=== PATIENT | female | born 1960 | race Caucasian/White ===

== ENCOUNTER 2017-10-14 17:13 | Emergency (ER) | payer BC ==
[2017-10-14 17:59] VITALS: BP 134/80
--- NOTE | 2017-10-14 18:12 | UC ---
Skin Complaint HPI - HPI Summary HPI Summary: rash on left flank that erupted after having pain in the same area 3 days ago - History of Current Complaint Chief Complaint: UCRash Time Seen by Provider: 10/14/17 18:01 Stated Complaint: RASH Hx Obtained From: Patient Hx Last Menstrual Period: none since 2012 ?: No Onset/Duration: Sudden Onset, Lasting Days - 3, Still Present Timing: Constant Pain Intensity: 3 Pain Scale Used: 0-10 Numeric Location: Discrete Character: Pain, Redness Aggravating Factor(s): Touch - clothes rubbing Alleviating Factor(s): Nothing Associated Signs & Symptoms: Positive: Negative - Allergy/Home Medications Allergies/Adverse Reactions: Allergies Allergy/AdvReac Type Severity Reaction Status Date / Time MS Penicillin V Allergy Unknown See Comment Verified 10/14/17 17:33 [From Penicillin VK Potassium] Home Medications: Home Medications ARIPiprazole TAB* [Abilify TAB*] 7.5 mg PO DAILY 10/14/17 [History Confirmed ] Review of Systems Constitutional: Negative Skin: Rash - left flank radiating around under left breast Eyes: Negative ENT: Negative Respiratory: Negative Cardiovascular: Negative Gastrointestinal: Negative Genitourinary: Negative Motor: Negative Neurovascular: Negative Musculoskeletal: Negative Neurological: Negative Psychological: Negative Is Patient Immunocompromised?: No All Other Systems Reviewed And Are Negative: Yes PMH/Surg Hx/FS Hx/Imm Hx Previously Healthy: Yes Psychological History: Bipolar Disorder - Surgical History Surgical History: Yes Surgery Procedure, Year, and Place: foot x2 (right and left), R clavicle x2, D&C - Family History Known Family History: Positive: Diabetes Negative: Hypertension - Social History Occupation: Employed Part-time Lives: With Family Alcohol Use: Rare Substance Use Type: None Smoking Status (MU): Never Smoked Tobacco Physical Exam Triage Information Reviewed: Yes Appearance: Well-Appearing, No Pain Distress, Obese Vital Signs: Initial Vital Signs Temp 98.2 F 10/14/17 17:56 Pulse 79 10/14/17 17:56 Resp 18 10/14/17 17:56 BP 134/80 10/14/17 17:56 Pulse Ox 99 10/14/17 17:56 Vital Signs Reviewed: Yes Eye Exam: Normal Eyes: Positive: Conjunctiva Clear ENT Exam: Normal ENT: Positive: Normal ENT inspection, Hearing grossly normal. Negative: Trismus , Muffled voice, Hoarse voice Dental Exam: Normal Neck exam: Normal Neck: Positive: Supple, Nontender Respiratory Exam: Normal Respiratory: Positive: Chest non-tender, No respiratory distress, No accessory muscle use Cardiovascular Exam: Normal Cardiovascular: Positive: RRR, Pulses Normal, Brisk Capillary Refill Musculoskeletal Exam: Normal Musculoskeletal: Positive: Strength Intact, ROM Intact, No Edema Neurological Exam: Normal Neurological: Positive: Alert, Muscle Tone Normal Psychological Exam: Normal Skin Exam: Other Skin: Positive: Other - red vesicular rah arond left flank and under left breast Course/Dx - Course Course Of Treatment: mild soap and water wash, acyclovir, lidoderm, tylenol/ ibuprofen for pain follow with pcp prn - Diagnoses Provider Diagnoses: shingles left flank Discharge - Sign-Out/Discharge Documenting (check all that apply): Patient Departure All imaging exams completed and their final reports reviewed: No Studies - Discharge Plan Condition: Stable Disposition: HOME Prescriptions: Acyclovir* [Zovirax 400 MG TAB*] 800 mg PO 5ID 7 Days #70 tab Lidocaine PATCH 5%* [Lidoderm 5% Patch*] 1 patch TRANSDERM DAILY 15 Days #15 patch Patient Education Materials: Ibuprofen (By mouth), Shingles (ED) Referrals: Saida Cabello MD [Primary Care Provider] - If Needed - Billing Disposition and Condition Condition: STABLE Disposition: Home
== END 2017-10-14 18:36 | disposition home or self-care (01) ==
LOC: UCEAST 17:13
DX: B02.9 Zoster without complications (principal); Z88.0 Allergy status to penicillin; C45.9 Mesothelioma, unspecified
CPT/HCPCS: 99212; G0463

== ENCOUNTER 2018-01-15 09:26 | Emergency (ER) | payer BC ==
[2018-01-15 09:33] VITALS: BP 113/77
[2018-01-15] MEDS ORDERED: Lidocaine 1%* 5 ML VIAL INJ ONE (10:17)
--- NOTE | 2018-01-15 10:57 | UC ---
Laceration HPI - HPI Summary HPI Summary: 57-year-old female presents with laceration to the left upper lip and abrasions below her left eye after accidentally tripping on bed skirt and falling the floor this morning around 9 AM. Denies loss of consciousness, malocclusion, loose teeth, headache, visual disturbances, dysphagia, difficulty breathing, chest pain, palpitations, weakness, or dizziness. - History Of Current Complaint Chief Complaint: UCLaceration Stated Complaint: FACIAL LAC Time Seen by Provider: 01/15/18 10:00 Hx Obtained From: Patient Hx Last Menstrual Period: none since 2012 Laceration Location: Face - left upper lip Severity: Mild Pain Intensity: 3 Aggravating Factors: Nothing Head: 1 - Superficial abrasion with mild eccymosis and swelling. 2 - 1 cm laceration through and through that extends through the vermilion border - Allergies/Home Medications Allergies/Adverse Reactions: Allergies Allergy/AdvReac Type Severity Reaction Status Date / Time Penicillins Allergy See Comment Verified 01/15/18 09:33 Home Medications: Home Medications Fluoxetine HCl [Prozac] 10 mg PO 01/15/18 [History] PMH/Surg Hx/FS Hx/Imm Hx Previously Healthy: Yes Psychological History: Depression - Surgical History Surgical History: Yes Surgery Procedure, Year, and Place: foot x2 (right and left), R clavicle x2, D&C - Family History Known Family History: Positive: Diabetes Negative: Cardiac Disease, Hypertension, Respiratory Disease - Social History Occupation: Employed Full-time Lives: With Family Alcohol Use: None Substance Use Type: None Smoking Status (MU): Never Smoked Tobacco Review of Systems All Other Systems Reviewed And Are Negative: Yes Constitutional: Negative: Fever, Chills Skin: Positive: Other - See HPI Eyes: Negative: Blurred Vision, Diplopia, Photophobia ENT: Negative: Epistaxis, Dental Pain Respiratory: Negative: Shortness Of Breath Cardiovascular: Negative: Palpitations, Chest Pain Gastrointestinal: Negative: Abdominal Pain, Vomiting, Diarrhea, Nausea Musculoskeletal: Positive: Negative Neurological: Negative: Headache, Paresthesia, Numbness Is Patient Immunocompromised?: No Physical Exam Triage Information Reviewed: Yes Appearance: Well-Appearing, No Pain Distress, Obese Vital Signs: Initial Vital Signs Temp 96.2 F 01/15/18 09:29 Pulse 73 01/15/18 09:29 Resp 18 01/15/18 09:29 BP 113/77 01/15/18 09:29 Pulse Ox 98 01/15/18 09:29 Vital Signs Reviewed: Yes Eyes: Positive: Conjunctiva Clear, Other: - Extraoccular eye movements intact. ENT: Positive: Pharynx normal, Uvula midline, Other - No malocculsion, loose teeth, or dental fracture noted.. Negative: Nasal congestion, Nasal drainage, Trismus, Dental tenderness Neck: Positive: Supple, Nontender, Other: - Full painless cervical ROM Respiratory: Positive: Lungs clear, Normal breath sounds, No respiratory distress Cardiovascular: Positive: RRR, No Murmur Abdomen Description: Positive: Nontender, No Organomegaly, Soft. Negative: Distended, Guarding Musculoskeletal: Positive: Other: - Mild tenderness over left maxilla without crepitus or gross deformity. Neurological: Positive: Alert - AAOx4. MAK equal and strong. Gait steady., Muscle Tone Normal Skin: Positive: Significant Lesion(s) - See diagrams. There is also a 2 cm laceration to the inner lip immediately below external laceration. Laceration Repair - Laceration Repair 1 Procedure Summary: Procedure: Laceration Repair of Left Upper Lip PROCEDURE: Informed consent was obtained before procedure started and the appropriate timeout was taken. The wound was irrigated with 400 ml sterile saline prior to procedure by the RN The area was prepped and cleansed using a sterile saline and chlorhexadine solution. A left infraorbital nerve block was performed using 2 ml of Lidocaine 1% without epinephrine and good anesthesia was achieved. The external laceration was attended to first. The vermilion border was brought into good alignment and a interrupted suture using 6-0 Ethilon was placed before placing 2 more interrupted sutures with the 6-0 Ethilon to close the laceration. The internal laceration was then attended. A single buried suture using 6-0 Vicryl was placed to bring the deep layers into approximation then 3 interrupted sutures using 6-0 Vicryl were placed in the mucosa of the inner lip. Estimated blood loss was minimal. Anticipatory guidance as well as standard post -procedure care were explained to the patient. Return precautions were given. The patient tolerated the procedure well without complications. The patient is to return in 7 days for suture removal and evaluation of the laceration. Description: Linear - Through and through left upper lip laceration Laceration Size After Repair: Length (cm) - 1 cm external lip, 2 cm internal lip Modified For Repair: No Type Injection: Local - Infraorbital nerve block Anesthesia Used: 1.0% Lido Cleansing Completed Via Routine Prep: Yes Irrigation With Pressure Irrigation Device: Yes Closure Material: Sutures Closure Method: Multilayer Suture Of: Skin, Mucus Membrane Suture Type: Nylon - 6-0 Ethilon, Vicryl - 6-0 Vicryl Laceration Course/Dx - Course/Dx Course Of Treatment: 57-year-old female presents with laceration to the left upper lip and abrasions below her left eye after accidentally tripping on bed skirt and falling the floor this morning around 9 AM. Denies loss of consciousness, malocclusion, loose teeth, headache, visual disturbances, dysphagia, difficulty breathing, chest pain, palpitations, weakness, or dizziness. Exam revealed a through and through laceration of the left upper lip with a 2 cm laceration in the mucosa of the lip and a 1 cm laceartion externally that extended through the vermilion border. An infraorbital nerve block was performed and both the external and internal laceration were repaired. Anticipatory guidance and warning symptoms were reviewed with the patient. She is to return in 7 days for suture removal. Verbalizes understanding and agrees with POC. - Differential Dx - Laceration/Wound Differental Diagnoses: Bite Injury, Laceration Provider Diagnoses: laceration left upper lip Discharge - Sign-Out/Discharge Documenting (check all that apply): Patient Departure All imaging exams completed and their final reports reviewed: No Studies - Discharge Plan Condition: Stable Disposition: HOME Patient Education Materials: Care For Your Stitches (ED), Care For Your Absorbable Stitches (ED), Facial Laceration (ED) Referrals: Saida Cabello MD [Primary Care Provider] - Additional Instructions: Your lip laceration was repaired using both absorbable and non-absorbable sutures. You will need to return here to have the non-absorbable sutures removed however the absorbable will slowly disappear over the next several weeks. Gently clean the outside of the lip with a mild soap and water daily. You may perform oral hygiene as normal. I would recommend using a salt water rinse after every time you eat and at bedtime to remove any debris that nay get into the wound. The numbing medication used to repair your laceration will begin to wear off in about 2-4 hours. You may use acetaminophen (Tylenol) or ibuprofen (Advil, Motrin ) according to directions as needed for pain. Return here in 7 days for suture removal. Watch for signs of infection including fever greater than 100.5 F, redness that spreads, swelling of the hand, pain that is not managed with pain medication, numbness or tingling in the hand or fingers, or pus draining from the wound. Seek immediate medical attention should any of these occur. - Billing Disposition and Condition Condition: STABLE Disposition: Home
== END 2018-01-15 11:10 | disposition home or self-care (01) ==
LOC: UCEAST 09:26
DX: S01.511A Laceration without foreign body of lip, initial encounter (principal); W01.0XXA Fall on same level from slipping, tripping and stumbling without subsequent striking against object, initial encounter; Y93.01 Activity, walking, marching and hiking; Y92.003 Bedroom of unspecified non-institutional (private) residence as the place of occurrence of the external cause; F32.9 Major depressive disorder, single episode, unspecified; Z88.0 Allergy status to penicillin
CPT/HCPCS: 12001; 12011; 99211; G0463

== ENCOUNTER 2018-01-22 07:01 | Emergency (ER) | payer BC ==
[2018-01-22 07:11] VITALS: BP 113/72
--- NOTE | 2018-01-22 07:29 | UC ---
HPI Wound/Suture Re-check - HPI Summary HPI Summary: Patient presents for suture removal from her left upper lip. Sutures were placed on 01/15/18. Patient sustained a laceration when she rolled out of bed striking her face. No broken teeth. Patient had 3 simple interrupted sutures of the left upper outer lip including 1 to approximate vermilliion border. Patient also had absorbable sutures placed in her left inner lip. Patient without any complaints. Patient states she got mild discomfort which he touches it. No fevers or chills. Patient's been doing salt water rinses inside her mouth. No analgesia taken since the first day. Patient's tetanus is up-to-date. Patient without any questions or concerns. Patient's medications reviewed this visit - History Of Current Complaint Chief Complaint: UCLaceration Stated Complaint: SUTURE REMOVAL Time Seen by Provider: 01/22/18 07:14 Hx Last Menstrual Period: none since 2012 Pain Intensity: 0 - Allergies/Home Medications Allergies/Adverse Reactions: Allergies Allergy/AdvReac Type Severity Reaction Status Date / Time Penicillins Allergy See Comment Verified 01/22/18 07:11 PMH/Surg Hx/FS Hx/Imm Hx Previously Healthy: Yes - Surgical History Surgical History: Yes Surgery Procedure, Year, and Place: foot x2 (right and left), R clavicle x2, D&C - Family History Known Family History: Positive: Diabetes Negative: Cardiac Disease, Hypertension, Respiratory Disease - Social History Occupation: Employed Full-time Lives: With Family Alcohol Use: None Substance Use Type: None Smoking Status (MU): Never Smoked Tobacco Review of Systems All Other Systems Reviewed And Are Negative: Yes Skin: Positive: Bruising - left lateral eye contusion, Other - lip laceration - sutures Physical Exam - Summary Physical Exam Summary: Vital Signs Reviewed: Yes A+Ox3, no distress Eyes: Conjunctiva Clear, BHARATHI EOM intact and full ENT: Hearing grossly normal TM x 2 clear Pt wtih simple interrupted sutures left upper lateral lip - removed without difficulty wound well approximated and healed mild edema. no erythema. fluctuane or discharge Inner lip with visible sutures - absorable -well approximated neck: supple Respiratory: Positive: No respiratory distress, No accessory muscle use Cardiovascular: skin color reflect adequate perfusion Musculoskeletal Exam: MAK x 4 without difficulty Neurological: Positive: Alert, ambulatory without difficulty Psychological: Positive: Normal Response To Family Skin: Positive: no rash, no ecchymosis Triage Information Reviewed: Yes Vital Signs: Initial Vital Signs Temp 95.5 F 01/22/18 07:07 Pulse 62 01/22/18 07:07 Resp 16 01/22/18 07:07 BP 113/72 01/22/18 07:07 Pulse Ox 97 01/22/18 07:07 Course/Dx - Course Course Of Treatment: Patient presents to urgent care to have her external lip sutures removed. There are placed 1123. Wound is well-healed with good approximation. Removed some 3 sutures without any difficulty or bleeding. Reviewed with patient signs and symptoms of infection. Precautions for wound healing including keeping out of the sun. Inner suture line with a peripheral sutures also looks well. No concern for infection there. Patient advised he should follow out in 10-12 days. Patient encouraged to continue salt water rinses but not necessary. Patient comfortable in agreement with plan. Questions answered to the best of my ability. - Diagnosis Provider Diagnosis: Visit for suture removal Discharge - Sign-Out/Discharge Documenting (check all that apply): Patient Departure All imaging exams completed and their final reports reviewed: No Studies - Discharge Plan Condition: Stable Disposition: HOME Patient Education Materials: Stitches Removal (ED) Referrals: Saida Cabello MD [Primary Care Provider] - Additional Instructions: - keep area clean - okay to cover with a thin layer of vasoline, antibiotic ointment, or lotion - continue to monitor for signs of infection - reddness, red streaking, swelling , increased pain - the inner sutures will dissolve in 10-14 days - scar can take up to 9 months to reach their final appearance. Keeping out of sunlight (apply sun screen or wear a hat) will help minimize scar formation - contact your doctor or return with questions or concerns - Billing Disposition and Condition Condition: STABLE Disposition: Home
== END 2018-01-22 07:30 | disposition home or self-care (01) ==
LOC: UCEAST 07:01
DX: S01.511D Laceration without foreign body of lip, subsequent encounter (principal); W22.8XXD Striking against or struck by other objects, subsequent encounter; Z88.0 Allergy status to penicillin

== ENCOUNTER 2018-02-20 16:17 | Emergency (ER) | payer BC ==
[2018-02-20 16:36] VITALS: BP 112/78
--- NOTE | 2018-02-20 16:42 | UC ---
Skin Complaint HPI - HPI Summary HPI Summary: 57-year-old woman comes in to clinic today with a chief complaint of swelling of her left upper lip. Patient had a laceration that was sutured on December. She had sutures taken out. Swelling started about 10 days ago. No drainage. She feels well otherwise. - History of Current Complaint Time Seen by Provider: 02/20/18 16:26 Stated Complaint: SKIN COMPLAINT Hx Last Menstrual Period: none since 2012 - Allergy/Home Medications Allergies/Adverse Reactions: Allergies Allergy/AdvReac Type Severity Reaction Status Date / Time Penicillins Allergy See Comment Verified 01/22/18 07:11 PMH/Surg Hx/FS Hx/Imm Hx Previously Healthy: Yes Psychological History: Depression, Bipolar Disorder - Surgical History Surgical History: Yes Surgery Procedure, Year, and Place: foot x2 (right and left), R clavicle x2, D&C - Family History Known Family History: Positive: Diabetes Negative: Cardiac Disease, Hypertension, Respiratory Disease - Social History Alcohol Use: None Substance Use Type: None Smoking Status (MU): Never Smoked Tobacco Review of Systems All Other Systems Reviewed And Are Negative: Yes Constitutional: Positive: Negative Skin: Positive: Negative Eyes: Positive: Negative ENT: Positive: Other - SEE HPI Respiratory: Positive: Negative Cardiovascular: Positive: Negative Gastrointestinal: Positive: Negative Motor: Positive: Negative Neurovascular: Positive: Negative Musculoskeletal: Positive: Negative Neurological: Positive: Negative Psychological: Positive: Negative Is Patient Immunocompromised?: No Physical Exam Triage Information Reviewed: Yes Appearance: Well-Appearing, No Pain Distress, Well-Nourished Vital Signs: Initial Vital Signs Temp 97.5 F 02/20/18 16:21 Pulse 80 02/20/18 16:21 Resp 16 02/20/18 16:21 BP 112/78 02/20/18 16:21 Pulse Ox 96 02/20/18 16:21 Vital Signs Reviewed: Yes Eye Exam: Normal Eyes: Positive: Conjunctiva Clear ENT: Positive: Other - Upper left the left upper lip has a slightly fluctuant but overall fIRM swelling without any drainage swelling. Dental Exam: Normal Neck exam: Normal Respiratory: Positive: No respiratory distress Musculoskeletal Exam: Normal Musculoskeletal: Positive: Strength Intact, ROM Intact Neurological Exam: Normal Neurological: Positive: Alert, Muscle Tone Normal Psychological Exam: Normal Psychological: Positive: Age Appropriate Behavior Skin Exam: Normal Course/Dx - Course Course Of Treatment: Swelling on the lip is firm. At this time I cannot tell if it's scar tissue to his underlying infection is an underlying foreign body. We will treat with antibiotics and if it does not completely improve the patient 's going to follow-up with plastic surgery. - Diagnoses Provider Diagnosis: Mass of lip Discharge - Sign-Out/Discharge Documenting (check all that apply): Patient Departure All imaging exams completed and their final reports reviewed: No Studies - Discharge Plan Condition: Stable Disposition: HOME Prescriptions: Clindamycin Cap(NF) [Clindamycin Cap 300 mg Cap(NF)] 300 mg PO Q6H #40 cap Patient Education Materials: Abscess (ED) Referrals: Saida Cabello MD [Primary Care Provider] - Sandeep Dickerson MD [Medical Doctor] - Additional Instructions: FOLLOW UP WITH PLASTIC SURGERY IF NOT COMPLETELY IMPROVED. GET RECHECKED FOR ANY WORSENING OF YOUR CONDITION OR QUESTIONS OR CONCERNS. - Billing Disposition and Condition Condition: STABLE Disposition: Home
== END 2018-02-20 16:50 | disposition home or self-care (01) ==
LOC: UCEAST 16:17
DX: K13.0 Diseases of lips (principal); Z88.0 Allergy status to penicillin
CPT/HCPCS: 99212; G0463

== ENCOUNTER 2018-11-10 17:15 | Emergency (ER) | payer BC ==
--- OUTSIDE RECORDS SUMMARY | 2018-11-10 17:22 | XMS REPORT | Continuity of Care Document ---
:1960 External Reference #:[id number] Author Name Saida Cabello M.D. Address [address] [place] [address] Care Team Providers Name Role Phone Tim Oshea - Orthopaedic Surgery Care Team Information Vamp Maker [phone] Saida Cabello - Family Medicine Care Team Information Vamp Maker Roger Taylor MD - Orthopaedic Surgery Care Team Information Vamp [facility] - Care Team Information Vamp Maker [phone] Gastroenterology [facility] - Diagnostic Care Team Information Vamp Maker Radiology Problems Active Problems Provider Date Gallstone Saida Cabello M.D. Onset: 10/27/2018 Chronic kidney disease stage 3 Saida Cabello M.D. Onset: 10/27/2018 Overweight Saida Cabello M.D. Onset: 12/21/2012 Urinary incontinence Saida Cabello M.D. Onset: 12/21/2012 Morbid obesity Zoey Fox M.D. 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 Onset: 07/31/2011 Pain in limb Zoey Fox M.D. Onset: 07/31/2011 Pre-surgery evaluation Zoey Fox M.D. Onset: 07/31/2011 Social History Type Date Description Comments Sex Unknown Tobacco Use Start: Unknown Never Smoked Cigarettes Smoking Status Reviewed: 07/02/18 Never Smoked Cigarettes ETOH Use Rare Tobacco Use Start: Unknown Patient has never smoked Allergies, Adverse Reactions, Alerts Active Allergies Reaction Severity Comments Date Penicillin 06/05/2004 [place] tremor. 02/14/2016 Medications Active Medications SIG Qnty Indications Ordering Provider Date Nystatin apply cream twice 45gm B35.4 Saida Cabello, 08/12/2018 [id number]/GM daily to rash M.D. Cream Tegretol bid Unknown 400mg Tablets Quetiapine Fumarate 1 by mouth every Unknown 200mg at bedtime Tablets Fluvoxamine Maleate 2 once daily Unknown 10mg Tablets Abilify 1 by mouth every Unknown 20mg Tablets day Medications Administered in Office Medication SIG Qnty Indications Ordering Provider Date TB Intradermal Test Saida Cabello M.D. 02/12/2016 Injection TB Intradermal Test Adilson Montero 09/06/2012 Injection TB Intradermal Test Adilson Montero 04/17/2010 Injection Immunizations CPT Code Status Date Vaccine Lot # [id number] Given 10/10/2018 Zoster (Shingles) Vaccine (HZV), Recombinant, Subunit, Adjuvanted 15062 Given 12/14/2017 Influenza Vac, Quadriv[place], [place] [id number] Given 02/11/2017 Influenza vac quadrivalent preservative free 3yrs [id number] [place] [address] Given 02/14/2016 Influenza Vac, Quadrivalent, Slit Virus, Im [id number] 41842 Given 03/24/2014 DO Not Use Split Influenza Virus Vaccine 93144 Given 12/21/2012 DO Not Use Split Influenza Virus Vaccine [id number] 31811 Given 08/10/2012 Tdap Tetanus, W Pertussis [id number] 06673 Given 03/15/2012 DO Not Use Split Influenza Virus Vaccine 36643 Given 02/08/2011 DO Not Use Split Influenza Virus Vaccine 02371 Given 12/29/2009 DO Not Use Split Influenza Virus Vaccine Vital Signs Date Vital Result Comment 10/27/2018 8:06am BP Systolic 134 mmHg BP Diastolic 84 mmHg Heart Rate 66 /min Body Temperature 97.2 F Respiratory Rate 16 /min Height 68 inches 5'8" Weight 227.00 lb BMI (Body Mass Index) 34.5 kg/m2 08/12/2018 8:33am BP Systolic 140 mmHg BP Diastolic 110 mmHg Heart Rate 72 /min Body Temperature 98.5 F Respiratory Rate 18 /min Weight 224.00 lb Results Test Date Facility Test Result H/L Range Note Comprehensive Metabolic 09/27/2018 [facility]) Sodium 141 mEq/L 134-149 Prof Potassium 5.2 mEq/L 3.6-5.5 Chloride 105 mEq/L 94-112 Carbon Dioxide 29 mEq/L 21-32 Glucose 99 mg/dL 70-105 BUN 23 mg/dL 6-26 Creatinine 1.3 mg/dL 0.6-1.4 BUN/Creat Ratio 17.7 CALC 8.0-36.0 Calcium 10.1 mg/dL 8.6-10.2 Total Protein 7.5 g/dL 6.4-8.3 Albumin 4.3 g/dL 3.8-5.5 Globulin 3.2 g/dL 2.0-4.8 A/G Ratio 1.3 CALC 0.6-2.3 Alk. Phosphatase 135 U/L High 30-110 1 Alt (SGPT) 43 U/L High 7-35 2 Ast (Sgot) 25 U/L 5-34 Total Bilirubin 0.4 mg/dL 0.2-1.3 GFR Non- 44 ml/min/1.73m^ Low >=60 GFR 54 ml/min/1.73m^ Low >=60 Liver-Kidney 08/12/2018 [facility] Liver-Kidney <20.1 0.0-20.0 3, 4 Microsomal AB [address] [facility] [place] [address] (199)- - Iron And Tibc 08/12/2018 [facility] Iron 330 [phone] [facility] Bind.Cap.(Tibc) g/[place] [address] (068)- - Uibc 249 g/dL 131-425 Iron 81 g/dL 27-159 Iron Saturation 25 % 15-55 Hepatitis Panel, 08/12/2018 [facility] Hep A Ab, Negative Negative Acute [address] [facility] [place] [address] ([phone] - HBsAg Screen Negative Negative Hep B Core Ab, IgM Negative Negative Hep C Virus Ab 0.2 s/coratio 0.0-0.9 5 Antinuclear 08/12/2018 [facility] Antinuclear Positive Abnormal 6 Antibodies (Lucrecia), [address] [facility] Antibodies, [place] [address] (607)- - Homogeneous Pattern TNP Nucleolar Pattern TNP Speckled Pattern 1:80 Centromere Pattern TNP Spindle Apparatus Pattern TNP Nuclear Membrane Pattern TNP Midbody Pattern TNP Nuclear Dot Pattern TNP Pcna Pattern TNP Centriole Pattern TNP Note: See Comment: 7 Comprehensive Metabolic 08/12/2018 [facility]) Sodium 142 mEq/L 134-149 Prof Potassium 3.9 mEq/L 3.6-5.5 Chloride 104 mEq/L 94-112 Carbon Dioxide 23 mEq/L 21-32 Glucose 115 mg/dL High 70-105 8 BUN 23 mg/dL 6-26 Creatinine 1.2 mg/dL 0.6-1.4 BUN/Creat Ratio 19.2 CALC 8.0-36.0 Calcium 9.5 mg/dL 8.6-10.2 Total Protein 7.2 g/dL 6.4-8.3 Albumin 4.5 g/dL 3.8-5.5 Globulin 2.7 g/dL 2.0-4.8 A/G Ratio 1.7 CALC 0.6-2.3 Alk. Phosphatase 126 U/L High 30-110 9 Alt (SGPT) 40 U/L High 7-35 10 Ast (Sgot) 23 U/L 5-34 Total Bilirubin 0.5 mg/dL 0.2-1.3 GFR Non- 49 ml/min/1.73m^ Low >=60 GFR 59 ml/min/1.73m^ Low >=60 Laboratory test 08/12/2018 [facility] Hemoglobin A1c 5.2 % % 4.1- 5.7 finding (607)- - (Fma) Laboratory test 07/02/2018 [facility] Folate (Folic >20.0 >3.0 11, 12 finding [address] [facility] Acid), Serum ng/[place] [address] (607)- - Laboratory test 07/02/2018 [facility](fma) Vitamin B-12 979 pg/mL 230-1050 finding Ferritin 108 ng/mL 15-200 TSH 0.51 mIU/L 0.50-6.00 Free T3 3.09 pg/mL 2.00-4.90 Vitamin D25 38 30-100 CBC Electronic Fma 07/02/2018 [facility](formerly [facility]) WBC 7.9 x10^3/UL 4.0- 10.0 RBC 4.36 x10^6/UL 3.93-6.00 HGB 13.5 g/dL 12.0-17.0 HCT 40 % 35-50 MCV 92.7 fL 80.0-95.0 MCH 31.0 pg 25.6-32.2 MCHC 33.4 g/dL 32.2-36.0 RDW-CV 12.5 % 11.6-14.4 PLT 203 x10^3/UL 163-400 MPV 10.8 fL 9.4-12.4 Edward# 5.48 x10^3/UL 1.56-6.13 Lymph# 1.53 x10^3/UL 1.18-3.74 [place]# 0.70 x10^3/UL 0.24-0.82 Eos # 0.2 x10^3/UL 0.0-0.5 Baso # 0.03 x10^3/UL 0.01-0.08 Edward% 69.4 % 34.0-70.0 Lymph % 19.4 % Low 20.0-52.0 [place]% 8.9 % 5.0-12.0 Eos% 1.9 % 0.7-7.0 Baso% 0.4 % 0.1-1.2 Comprehensive Metabolic 07/02/2018 [facility](formerly [facility]) Sodium 140 mEq/L 134-149 Prof Potassium 3.8 mEq/L 3.6-5.5 Chloride 101 mEq/L 94-112 Carbon Dioxide 21 mEq/L 21-32 Glucose 169 mg/dL High 70-105 13 BUN 25 mg/dL 6-26 Creatinine 1.0 mg/dL 0.6-1.4 BUN/Creat Ratio 25.0 CALC 8.0-36.0 Calcium 9.2 mg/dL 8.6-10.2 Total Protein 6.7 g/dL 6.4-8.3 Albumin 4.0 g/dL 3.8-5.5 Globulin 2.7 g/dL 2.0-4.8 A/G Ratio 1.5 CALC 0.6-2.3 Alk. Phosphatase 185 U/L High 30-110 14 Alt (SGPT) 465 U/L High 7-35 15 Ast (Sgot) 70 U/L High 5-34 16 Total Bilirubin 0.5 mg/dL 0.2-1.3 GFR Non- 60 ml/min/1.73m^ >=60 GFR >60 ml/min/1.73m^ >=60 Lipid Profile 07/02/2018 [facility]as[facility](fma) Cholesterol 215 mg/dL High 120-200 Triglycerides 134 mg/dL 30-200 HDL Cholesterol 52 mg/dL 30-85 LDL (Calculated) 136 CALC High 0-129 VLDL Cholesterol 27 mg/dL 0-50 HDL Risk Factor 4.1 CALC 0.0-4.4 1 consistent w/ previous results 2 consistent w/ previous results 3 REFRIGERATED 4 Negative 0.0 - 20.0 Equivocal 20.1 - 24.9 Positive >24.9 LKM type 1 antibodies are detected in patients with autoimmune hepatitis type 2 and in up to 8% of patients with chronic HCV infection. 5 Negative: < 0.8 Indeterminate: 0.8 - 0.9 Positive: > 0.9 The CDC recommends that a positive HCV antibody result be followed up with a HCV Nucleic Acid Amplification test (956241). 6 Negative <1:80 Borderline 1:80 Positive >1:80 7 A positive LUCRECIA result may occur in healthy individuals (low titer) or be associated with a variety of diseases. See interpretation chart which is not all inclusive: Pattern Antigen Detected Suggested Disease Association Homogeneous DNA(ds,ss), SLE - High titers Nucleosomes, Histones Drug-induced SLE Speckled Sm, [employer]LYST, SCL-70, SLE,MCTD,PSS (diffuse form), SS-A/SS-B Sjogrens Nucleolar SCL-70, PM-1/SCL High titers Scleroderma, PM/DM Centromere Centromere PSS (limited form) w/Crest syndrome variable Nuclear Dot Sp100,f16-shbkow Primary Biliary Cirrhosis Nuclear GP210, Primary Biliary Cirrhosis Membrane pawel A,B,C 8 consistent w/ previous results 9 consistent w/ previous results 10 consistent w/ previous results 11 1 sst 12 A serum folate concentration of less than 3.1 ng/mL is considered to represent clinical deficiency. 13 NON-FASTING 14 RESULTS VERIFIED BY REPEAT ANALYSIS 15 RESULTS VERIFIED BY REPEAT ANALYSIS 16 RESULTS VERIFIED BY REPEAT ANALYSIS Procedures Date Code Description Status 07/09/2018 [id number] Mammogram Completed 02/27/2016 [id number] Mammogram Completed 07/14/2013 [id number] Mammogram Completed 07/07/2013 [id number] Mammogram Completed 09/28/2012 [id number] Mammogram Completed Medical Devices Description No Information Available Encounters Type Date Location Provider Dx Diagnosis Office Visit 08/12/2018 [facility] Saida Lisa R74.8 Abnormal levels of 8:30a Randolph Cabello other serum enzymes R73.01 Impaired fasting glucose B35.4 Tinea corporis Office Visit 07/02/2018 10:40a [facility] Saida Lisa R53.83 Other fatigue Randolph Cabello F31.81 Bipolar II disorder E66.3 Overweight Z12.31 Encntr screen mammogram for malignant neoplasm of breast E55.9 Vitamin D deficiency, unspecified M72.2 Plantar fascial fibromatosis Z13.220 Encounter for screening for lipoid disorders Assessments Date Code Description Provider 10/27/2018 N18.3 Chronic kidney disease, stage 3 (moderate) Saida Caebllo M.D. 10/27/2018 K80.80 Other cholelithiasis without obstruction Saida Cabello M.D. 10/27/2018 R74.8 Abnormal levels of other serum enzymes Saida Cabello M.D. 09/27/2018 R74.8 Abnormal levels of other serum enzymes Saida Cabello M.D. 09/27/2018 R73.01 Impaired fasting glucose Saida Cabello M.D. 08/12/2018 R74.8 Abnormal levels of other serum enzymes Saida Cabello M.D. 08/12/2018 R73.01 Impaired fasting glucose Saida Cabello M.D. 08/12/2018 B35.4 Tinea shyamis Saida Cabello M.D. 07/02/2018 R53.83 Other fatigue Saida Cabello M.D. 07/02/2018 F31.81 Bipolar II disorder Saida Cabello M.D. 07/02/2018 E66.3 Overweight Saida Cabello M.D. 07/02/2018 Z12.31 Encounter for screening mammogram for Saida Cabello M.D. malignant neoplasm of 07/02/2018 E55.9 Vitamin D deficiency, unspecified Saida Cabello M.D. 07/02/2018 M72.2 Plantar fascial fibromatosis Saida Cabello M.D. 07/02/2018 Z13.220 Encounter for screening for lipoid Saida Cabello M.D. disorders Plan of Treatment 10/27/2018 - Saida Cabello M.D.N18.3 Chronic kidney disease, stage 3 ( moderate)Comments:if the gfr number gets into the 30's, I will refer you to a kidney specialist. See if you can find out the name of the kidney doctor you went to.K80.80 Other cholelithiasis without obstructionComments:your gall bladder is full of stones, but it's not bothering you right now. If it starts to bother you, it can be taken out.R74.8 Abnormal levels of other serum enzymesComments:slightly elevated at this time. You do have "fatty liver," which is due to weight.We will check your liver enzymes every 6 months, and ultrasound every year depending on your symptoms, if any, and your bloodwork.Follow up:blood work in 6 months and follow up after the bloodwork.AllComments:Medication Management Patient Understands medications she' s taking? Yes No Are there Barriers to Adherence? Yes No Has the patient been asked about herbal supplements and therapies, and OTC meds? Yes No Functional Status Description No Information Available Mental Status Description No Information Available Referrals Description No Information Available
[2018-11-10 17:31] VITALS: BP 124/66
--- NOTE | 2018-11-10 17:40 | UC ---
Hand/Wrist HPI - HPI Summary HPI Summary: 58-year-old female who fell injuring her right wrist and scraping her right elbow approximate 1 PM today. She does not complain of any elbow pain but she does have wrist pain. She denies neck pain and did not hit her head nor does she have any other injury. - History Of Current Complaint Chief Complaint: UCUpperExtremity Stated Complaint: RT WRIST PAIN Time Seen by Provider: 11/10/18 17:25 Hx Obtained From: Patient Hx Last Menstrual Period: none since 2012 ?: No Onset/Duration: Sudden Onset Severity Initially: Moderate Severity Currently: Moderate Pain Intensity: 7 Character Of Pain: Dull, Aching - Right wrist. She denies any right elbow pain. Aggravating Factor(s): Movement Alleviating Factor(s): Rest Associated Signs And Symptoms: Positive: Swelling - Allergies/Home Medications Allergies/Adverse Reactions: Allergies Allergy/AdvReac Type Severity Reaction Status Date / Time lithium Allergy See Comment Verified 11/10/18 17:25 Penicillins Allergy See Comment Verified 11/10/18 17:25 PMH/Surg Hx/FS Hx/Imm Hx Previously Healthy: Yes - Surgical History Surgical History: Yes Surgery Procedure, Year, and Place: foot x2 (right and left), R clavicle x2, D&C - Family History Known Family History: Positive: Diabetes Negative: Cardiac Disease, Hypertension, Respiratory Disease - Social History Alcohol Use: None Substance Use Type: None Smoking Status (MU): Never Smoked Tobacco Review of Systems All Other Systems Reviewed And Are Negative: Yes Skin: Positive: Other - Patient has superficial abrasions to her right palm and right elbow. He also has some swelling to her right wrist. Musculoskeletal: Positive: Negative - She denies any head or neck pain. Has no other injury other than the abrasions on her right elbow and the right wrist pain., Other: Is Patient Immunocompromised?: No Physical Exam Triage Information Reviewed: Yes Appearance: Well-Appearing, No Pain Distress, Well-Nourished Vital Signs: Initial Vital Signs Temp 98.2 F 11/10/18 17:27 Pulse 82 11/10/18 17:27 Resp 16 11/10/18 17:27 BP 124/66 11/10/18 17:27 Pulse Ox 97 11/10/18 17:27 Vital Signs Reviewed: Yes Musculoskeletal: Positive: Strength Intact, ROM Limited @ - Flexion and extension of her wrist is limited due to pain however she can rotate slowly but with pain., Other: - Good finger strength with flexion extension against resistance, full range of motion the right elbow, I did not put her wrist range of motion because it swollen and painful. Neurological: Positive: Alert, Muscle Tone Normal Psychological Exam: Normal Skin: Positive: Other - Superficial abrasion right palm and right elbow. Hand/Wrist Course/Dx - Course Course Of Treatment: Right wrist x-ray:Indication: Right wrist injury 3 views of the wrist demonstrates no fracture. No other bone or joint abnormality is identified. Calcification of the triangle fibrocartilage is noted. Question of a calcification or foreign body in the volar aspect of the wrist. IMPRESSION: NO FRACTURE OF THE WRIST IS NOTED. QUESTION OF FOREIGN BODY VERSUS CALCIFICATION IN THE VOLAR ASPECT OF THE WRIST. Her abrasions were cleansed here. She was given Tdap tetanus immunization. - Differential Dx/Diagnosis Provider Diagnosis: Right wrist sprain Discharge ED - Sign-Out/Discharge Documenting (check all that apply): Patient Departure All imaging exams completed and their final reports reviewed: Yes - Discharge Plan Condition: Fair Disposition: HOME Patient Education Materials: Wrist Sprain (ED) Referrals: Tim Mckinnon MD [Medical Doctor] - Saida Cabello MD [Primary Care Provider] - Additional Instructions: Keep the cockup wrist splint on for comfort. Elevate as much as possible and apply ice intermittently over the next day or 2. You may take Tylenol every 4 hours as needed for pain and may alternate with Motrin every 8 hours. Follow- up with the orthopedist on Thursday or Thursday if no improvement or if any worsening symptoms. - Billing Disposition and Condition Condition: FAIR Disposition: Home - Attestation Statements Provider Attestation: This patient was not seen by me. I was available for consult.FRANCIA
[2018-11-10] MEDS ORDERED: Tetan/Diph/Pertus SYR(Tdap)* 0.5 ML SYR(BOOSTRIX) use SYR IM ONE (17:44)
== END 2018-11-10 19:05 | disposition home or self-care (01) ==
LOC: UCEAST 17:15
DX: S63.501A Unspecified sprain of right wrist, initial encounter (principal); W19.XXXA Unspecified fall, initial encounter; Y92.9 Unspecified place or not applicable; Z88.0 Allergy status to penicillin; Z23 Encounter for immunization
CPT/HCPCS: 90715; 99212; G0463